=== PATIENT | female | born 1985 | race Caucasian/White ===

== ENCOUNTER → 2021-10-18 | Outpatient (CLI) | LOC: LABNPT 12:19 | PROVIDERS: ATTEND Obstetrics & Gynecology | DX: Z36.9 Encounter for antenatal screening, unspecified (principal) | CPT/HCPCS: 82105 ==

== ENCOUNTER → 2021-11-21 | Outpatient (CLI) | payer OTHER ==
--- NOTE | 2021-11-21 16:48 | Diagnostic Imaging Report ---
INDICATION: care TECHNIQUE: Multiple real-time grayscale images were obtained over the gravid uterus. COMPARISON: None FINDINGS: There is a single living intrauterine in breech presentation. The biometry correlates with gestational age 20 weeks 4 days. There is no evidence that the placenta is posterior and fundal. No evidence of previa. Heart rate 147 bpm. Cervical length 6.2 cm. There is suboptimal imaging of the brain anatomy due to maternal body habitus. The remainder of the anatomical survey was unremarkable. The maternal adnexa is grossly unremarkable IMPRESSION: Single living atrium with sonographic estimated gestational age of 20 weeks 4 days, estimated date of confinement 04/06/2022. Suboptimal evaluation of the brain anatomy due to maternal body habitus. The anatomical survey is otherwise unremarkable. Biometrical measurements are as follows: Biparietal 4.72 cm, age 20 weeks 2 days. Head circumference 18.40 cm, age 20 weeks 6 days. Abdominal circumference 16.17 cm, age 21 weeks 2 days. Femur length 3.09 cm, age 19 weeks 5 days. Sonographic estimate age: 20 weeks 4 days. Sonographic estimated date of delivery: 04/06/2022. Estimated Weight: 358 gm (+/- 53 gm). LMP percentile: 81%. heart rate: 147 beats per minute. number: 1 of 1. IMPRESSION: Dictated by: Dictated on workstation # [id number]
== END ==
LOC: RAD 10:59
PROVIDERS: ATTEND Obstetrics & Gynecology
DX: Z36.9 Encounter for antenatal screening, unspecified (principal)
CPT/HCPCS: 76805

== ENCOUNTER → 2022-01-02 | Outpatient (CLI) | payer OTHER ==
--- NOTE | 2022-01-03 14:31 | Diagnostic Imaging Report ---
EXAM: OB ULTRASOUND COMPLETE DATE: January 02, 2022. COMPARISON: November 21, 2021. INDICATION: 36-year-old female, follow-up intracranial anatomy. FINDINGS: Multiple grayscale sonographic images were obtained of the gravid uterus. Overview: Within the uterus there is a single living gestation in cephalic position. There is positive movement and heart motion. heart rate was identified at 150 beats per minute. The amnionic fluid volume is normal with an amniotic fluid index of 13.0. The placenta is posterior and without previa. The cervical length is cm. measurements were not made on the current exam. Estimated gestational age based on last menstrual period is 25 weeks and 6 days. anatomic survey: There is no ventriculomegaly (the lateral ventricle measures 6.2 mm) the cerebellum, cavum septum pellucidum, falx, and cisterna magna are identified. IMPRESSION: 1. Single living intrauterine . 2. Unremarkable intracranial evaluation of the fetus. Dictated by: Dictated on workstation # [id number]
== END ==
LOC: RAD 11:23
PROVIDERS: ATTEND Obstetrics & Gynecology
DX: Z36.9 Encounter for antenatal screening, unspecified (principal); Z3A.00 Weeks of gestation of pregnancy not specified
CPT/HCPCS: 76816